=== PATIENT | male | born 1990 | race Caucasian/White ===

== ENCOUNTER 2021-06-25 10:47 | Emergency (ER) | payer OTHER ==
[~2021-06-25] VITALS: Ht 177.8 cm; Wt 100.0 kg
[2021-06-25 10:48] VITALS: BP 134/85
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
[2021-06-25] MEDS ORDERED: LIDO5DIS41 TOP (13:43)
[2021-06-25] MEDS ORDERED: METH-1164 PO (13:44)
== END 2021-06-25 13:52 | disposition home or self-care (01) ==
LOC: M ED 10:47
DX: M54.2 Cervicalgia (principal); M54.9 Dorsalgia, unspecified; V40.9XXA Unspecified car occupant injured in collision with pedestrian or animal in traffic accident, initial encounter; Y92.410 Unspecified street and highway as the place of occurrence of the external cause; Y93.9 Activity, unspecified; Y99.9 Unspecified external cause status